=== PATIENT | male | born 1970 | race Caucasian/White ===

== ENCOUNTER → 2023-05-31 | Outpatient (REF) | LOC: M EMP 15:32 | PROVIDERS: ATTEND Nurse Practitioner Adult Health | DX: Z02.89 Encounter for other administrative examinations (principal) ==

== ENCOUNTER → 2023-05-31 | Outpatient (CLI) | payer OTHER ==
[2023-06-02 17:10] LABS: G6PD2 5.43 x10E6/uL (4.14-5.80)
== END ==
LOC: M PLALAB 12:29
PROVIDERS: ATTEND Orthopaedic Surgery Hand Surgery
DX: Z00.00 Encounter for general adult medical examination without abnormal findings (principal)

== ENCOUNTER → 2025-07-29 | Outpatient (CLI) | payer OTHER | LOC: M SOG 08:08 | PROVIDERS: ATTEND Physician Assistant | DX: M25.561 Pain in right knee (principal); M25.562 Pain in left knee; M17.0 Bilateral primary osteoarthritis of knee ==